=== PATIENT | female | born 1995 | race American Indian/Alaskan Native ===

== ENCOUNTER 2019-01-06 02:22 | Emergency (ER) | payer MEDICAID ==
[2019-01-06 02:30] VITALS: BP 126/70
[2019-01-06 05:32] LABS: Bilirubin,Urine NEG (Negative); Blood,Urine NEG (Negative); Color,Urine Colorless (Yellow); Protein,Urine <15 mg/dL mg/dL (Negative); Urobilinogen,Urine < 2.0 mg/dL (<2.0)
--- NOTE | 2019-01-06 06:00 | Ultrasound Report ---
PROCEDURE: US OB TRANSVAGINAL TECHNIQUE: Transvaginal imaging was obtained of the pelvis including Doppler interrogation of the ad nexa. HISTORY: 10 wks preg w/abd cramping COMPARISONS: None FINDINGS: The uterus is anteverted measuring 9.2 x 7.2 x 7.9 cm. Within the uterus is a well formed gestational sac which contains a pole. The crown-rump length is 34.3 mm corresponding to a 10 week 2 day I UP. The heart rate is 167 BPM. There is no evidence of subchorionic hemorrhage. There is minima l free fluid in the cul-de-sac. The left ovary is normal in size contour blood flow and echotexture measuring 2.8 x 1.1 x 1.7 cm. The right ovary measures 3.6 x 2.1 x 2.4 cm. Within the right ovary is a 1.6 cm anechoic cyst. The bl ood flow is normal to the right ovary. IMPRESSION: Single viable IUP, 10 weeks 2 days. The heart rate is 167 BPM. 1.6 cm anechoic cyst right ovary. No evidence of ovarian torsion bilaterally.. This document is electronically signed by Lefty Agarwal MD., January 06 2019 05:58:32 AM ET
--- NOTE | 2019-01-06 06:01 | Ultrasound Report ---
PROCEDURE: US OB <= 14 WEEKS FETUS TECHNIQUE: Transabdominal imaging was obtained of the pelvis including Doppler interrogation of the adnexa. HISTORY: 10 wks preg w/abd cramping COMPARISONS: None FINDINGS: The uterus is anteverted measuring 9.2 x 7.2 x 7.9 cm. Within the uterus is a well formed gestational sac which contains a pole. The crown-rump length is 34.3 mm corresponding to a 10 week 2 day I UP. The heart rate is 167 BPM. There is no evidence of subchorionic hemorrhage. The left ovary is normal in size contour blood flow and echotexture measuring 2.8 x 1.1 x 1.7 cm. The right ovary measures 3.6 x 2.1 x 2.4 cm. Within the right ovary is a 1.6 cm anechoic cyst. The bl ood flow is normal to the right ovary. There is minimal free fluid in the cul-de-sac. IMPRESSION: Single viable IUP, 10 weeks 2 days. The heart rate is 167 BPM. 1.6 cm right ovarian cyst. No evidence of ovarian torsion.. This document is electronically signed by Lefty Agarwal MD., January 06 2019 06:00:12 AM ET
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
[2019-01-06] MEDS ORDERED: TYLENOL PO ONE (08:14)
== END 2019-01-06 08:49 | disposition home or self-care (01) ==
LOC: ED 02:22
DX: O26.891 Other specified pregnancy related conditions, first trimester (principal); R10.2 Pelvic and perineal pain; O99.511 Diseases of the respiratory system complicating pregnancy, first trimester; J45.909 Unspecified asthma, uncomplicated; Z3A.10 10 weeks gestation of pregnancy
CPT/HCPCS: 36415; 76801; 76817; 81001; 84702; 99284

== ENCOUNTER 2019-03-15 16:01 | Observation (INO) | payer MEDICAID ==
[2019-03-15] MEDS ORDERED: LACTATED RINGERS 500 ML IV ONE (17:10)
[2019-03-15 17:39] LABS: Bilirubin,Urine NEG (Negative); Blood,Urine NEG (Negative); Color,Urine Yellow (Yellow); Mucus,Urine FEW /HPF; Protein,Urine <15 mg/dL mg/dL (Negative); Urobilinogen,Urine < 2.0 mg/dL (<2.0); WBC,Urine < 1.0 /HPF (0.0-6.0)
[2019-03-15] MEDS ORDERED: LACTATED RINGERS 1,000 ML IV ONE (18:53)
[2019-03-15 19:01] LABS: Hematocrit 33.8 % (30.3-42.9); Hemoglobin 11.6 gm/dl (10.1-14.3); Mean Corpuscular HGB Conc 34 % (30-34); Mean Corpuscular Volume 95 fl (79-97); Platelet Count 150 K/mm3 (140-440); Red Blood Count 3.56 M/mm3 (3.65-5.03)
[2019-03-15 19:32] LABS: Alanine Aminotransferase 9 units/L (7-56); Albumin 3.6 g/dL (3.9-5); BUN/Creatinine Ratio 10; Blood Urea Nitrogen 5 mg/dL (7-17); Calcium 9.1 mg/dL (8.4-10.2); Hemolysis Index 10
--- NOTE | 2019-03-15 21:08 | Ultrasound Report ---
PROCEDURE: Limited abdominal ultrasound. TECHNIQUE: Real-time sonography was performed of the right upper quadrant of the abdomen with image documentation. HISTORY: , upper right quadrant pain. COMPARISONS: None. FINDINGS: The liver has uniform echogenicity without focal masses. The portal vein is patent by color flow imag ing. The common hepatic duct measures 2.9 mm. The gallbladder is adequately distended with normal wal l thickness. There are no gallstones. There is a small amount of sludge in the gallbladder. The techn ologist felt there was a positive Ahuja's sign. There are no ultrasound imaging findings of acute ch olecystitis. The pancreas appears normal. The right kidney is normal in size and has normal echogenic ity. There is no significant hydronephrosis. IMPRESSION: Normal appearing gallbladder. Technologist felt there was a positive Ahuja's sign. This document is electronically signed by Lucio Childers MD., March 15 2019 09:06:19 PM ET
[2019-03-15] MEDS ORDERED: ZOFRAN IV PRN (22:00)
[2019-03-16] MEDS: LACTATED RINGERS 1,000 ML IV SCH ×2 (01:13→13:59)
--- NOTE | 2019-03-16 02:43 | History and Physical Report ---
History of Present Illness Date of examination: 03/16/19 Date of admission: 03/15/19 22:08 Chief complaint: nausea and vomiting History of present illness: This is a 23 yo at 20 weeks stated that she drank a mixture of drink and began vomiting. She came to the hospital . Patient c/o pain on ruq minimal. No bleeding no contractions. Denies leaking. Reports no sob nor chest pain. Past History Past Medical History: asthma, hematologic disorders (anemia) Past Surgical History: section (x1) Family/Genetic History: diabetes, hypertension, stroke Social history: single. denies: smoking, alcohol abuse, prescription drug abuse - Obstetrical History Expected Date of Delivery: 07/29/19 Actual Gestation: 20 Week(s) 5 Day(s) : 2 Para: 1 Hx # Term Pregnancies: 1 Number of Pregnancies: 0 Spontaneous Abortions: 0 Induced : 0 Number of Living Children: 1 Medications and Allergies Allergies Allergy/AdvReac Type Severity Reaction Status Date / Time No Known Allergies Allergy Verified 03/15/19 16:40 Home Medications Medication Instructions Recorded Confirmed Last Taken Type Ibuprofen [Motrin] 600 mg PO Q8H PRN #50 tablet 10/25/14 Unknown Rx Sulfamethoxazole/Trimethoprim 1 each PO BID #20 tablet 10/25/14 Unknown Rx [Bactrim Ds] oxyCODONE /ACETAMINOPHEN [Percocet 1 tab PO Q6HR PRN #15 tablet 10/25/14 Unknown Rx 5/325 mg] Acetaminophen [Tylenol 8 Hour] 650 mg PO TID #30 tablet.er 01/06/19 Unknown Rx Active Meds: Active Medications Lactated Ringer's (Lactated Ringers) 1,000 mls @ 125 mls/hr IV DIRECT LETICIA Last Admin: 03/16/19 01:13 Dose: 125 mls/hr Documented by: Ondansetron HCl (Zofran) 4 mg IV Q8H PRN PRN Reason: Nausea And Vomiting Review of Systems All systems: negative Gastrointestinal: vomiting - Vital Signs Vital signs: Vital Signs Temp Pulse Resp BP 98.9 F 75 20 107/59 03/15/19 16:41 03/15/19 16:41 03/15/19 16:41 03/15/19 16:41 Temp Pulse Resp BP Pulse Ox 97.7 F 86 18 105/57 03/15/19 22:38 03/15/19 22:40 03/15/19 22:38 03/15/19 22:40 - Physical Exam Breasts: Positive: normal Cardiovascular: Regular rate, Normal S1 Lungs: Positive: Clear to auscultation, Normal air movement Abdomen: Positive: normal appearance, soft, normal bowel sounds. Negative: distention, tenderness, guarding Genitourinary (Female): Positive: normal external genitalia, normal perenium Vagina: Positive: normal moisture Uterus: Positive: normal size, normal contour Extremities: Positive: normal Deep Tendon Reflex Grade: Normal +2 - Obstetrical FHR: category 1 Results Result Diagrams: 03/15/19 18:40 03/15/19 18:40 Abnormal lab results 03/15/19 03/15/19 03/15/19 Range/Units 18:40 18:40 18:40 RBC 3.56 L (3.65-5.03) M/mm3 MCH 33 H (28-32) pg RDW 13.0 L (13.2-15.2) % Sodium 134 L (137-145) mmol/L BUN 5 L (7-17) mg/dL Creatinine 0.5 L (0.7-1.2) mg/dL Albumin 3.6 L (3.9-5) g/dL Amylase 190 H (27-131) units/L Lipase (13-60) units/L 03/15/19 Range/Units 18:40 RBC (3.65-5.03) M/mm3 MCH (28-32) pg RDW (13.2-15.2) % Sodium (137-145) mmol/L BUN (7-17) mg/dL Creatinine (0.7-1.2) mg/dL Albumin (3.9-5) g/dL Amylase (27-131) units/L Lipase 8 L (13-60) units/L All other labs normal. Assessment and Plan A/P IUP 20 weeks Nausea Elevated amylase Sludge ( gallbladder) on US Observation anti-emetics, IVF Spoke with Dr. Arroyo and she will see patient in am doptones q shift US repeat labs in am if normal consider d/c home
[2019-03-16] MEDS ORDERED: AMBIEN PO PRN (02:58)
[2019-03-16] MEDS ORDERED: PERCOCET 5/325 PO ONE (13:08)
--- NOTE | 2019-03-16 13:45 | Ultrasound Report ---
OB ULTRASOUND History: Nausea and vomiting, 20 weeks gestation. Technique: Transabdominal ultrasound with Doppler interrogation. Gestation: Single Position: Cephalic Amniotic Fluid: Within normal limits Placenta: Posterior Placental Grade: 0 Heart Rate: 161 BPM Cervical length: 2.8 cm (Normal > 3 cm) NEUROANATOMY VISUALIZED: Choroid Plexus Lateral Ventricle ANATOMY VISUALIZED: Stomach Kidneys Bladder Diaphragm 4 Chamber Heart Heart 3 Vessel Cord Abd. Cord Insert SPINE VISUALIZED: Longitudinal The following are not demonstrated due to maternal body habitus or lie: Cisterna magnum, cerebellum and transverse views of the spine BPD: 4.6 cm = 19 w 6 d HC: 17.5 cm = 20 w 0 d AC: 13.9 cm = 19 w 2 d FL: 3.6 cm = 21 w 2 d HC/AC Ratio: 1.26 Cephalic Index: 79.3 Estimated Weight: 339 grams US Gest. Age = 20 w 1 d EDC: 08/02/19 IMPRESSION: Viable, single intrauterine as described. No acute abnormality is detected.
[2019-03-16 14:02] VITALS: BP 108/64
--- NOTE | 2019-03-16 14:54 | Consultation ---
History of Present Illness Consult date: 03/16/19 - History of present illness History of present illness: 23 yo female with current 20w1d intrauterine presented to hospital with n/v x 1 day. The patient states that she ate maría elena with vinegar the night before the symptoms started. She woke up with nausea and proceeded to vomit (nonbilious/nonbloody). She attributes the symptoms to this meal. She states she is having lower abdominal pain. No f/c, cp, sob. She is having BMs. Her n/v has now resolved and she is tolerating a regular diet. Past History Past Medical History: No medical history Past Surgical History: Social history: single. denies: smoking, alcohol abuse, prescription drug abuse Medications and Allergies Allergies Allergy/AdvReac Type Severity Reaction Status Date / Time No Known Allergies Allergy Verified 03/15/19 16:40 Home Medications Medication Instructions Recorded Confirmed Last Taken Type Ibuprofen [Motrin] 600 mg PO Q8H PRN #50 tablet 10/25/14 Unknown Rx Sulfamethoxazole/Trimethoprim 1 each PO BID #20 tablet 10/25/14 Unknown Rx [Bactrim Ds] oxyCODONE /ACETAMINOPHEN [Percocet 1 tab PO Q6HR PRN #15 tablet 10/25/14 Unknown Rx 5/325 mg] Acetaminophen [Tylenol 8 Hour] 650 mg PO TID #30 tablet.er 01/06/19 Unknown Rx Active Meds: Active Medications Lactated Ringer's (Lactated Ringers) 1,000 mls @ 125 mls/hr IV DIRECT LETICIA Last Admin: 03/16/19 13:59 Dose: 125 mls/hr Documented by: Ondansetron HCl (Zofran) 4 mg IV Q8H PRN PRN Reason: Nausea And Vomiting Zolpidem Tartrate (Ambien) 10 mg PO QHS PRN PRN Reason: Insomnia Review of Systems All systems: negative (10 pt ROS performed and negative except for that listed in HPI) Exam Vital Signs Temp Pulse Resp BP 98.9 F 75 20 107/59 03/15/19 16:41 03/15/19 16:41 03/15/19 16:41 03/15/19 16:41 Narrative exam: Gen: AAOx3. NAD CV: s1, S2+ Resp: even and unlabored Abd: soft, ND, LLQ and RLQ TTP - minimal. fundal height at umbilicus. No r/r/g. No RUQ TTP. Results - Labs 03/15/19 18:40 03/15/19 18:40 Abnormal lab results 03/15/19 03/15/19 03/15/19 Range/Units 18:40 18:40 18:40 RBC 3.56 L (3.65-5.03) M/mm3 MCH 33 H (28-32) pg RDW 13.0 L (13.2-15.2) % Sodium 134 L (137-145) mmol/L BUN 5 L (7-17) mg/dL Creatinine 0.5 L (0.7-1.2) mg/dL Albumin 3.6 L (3.9-5) g/dL Amylase 190 H (27-131) units/L Lipase (13-60) units/L 03/15/19 Range/Units 18:40 RBC (3.65-5.03) M/mm3 MCH (28-32) pg RDW (13.2-15.2) % Sodium (137-145) mmol/L BUN (7-17) mg/dL Creatinine (0.7-1.2) mg/dL Albumin (3.9-5) g/dL Amylase (27-131) units/L Lipase 8 L (13-60) units/L Diabetes panel 03/15/19 Range/Units 18:40 Sodium 134 L (137-145) mmol/L Potassium 4.2 (3.6-5.0) mmol/L Chloride 99.8 (98-107) mmol/L Carbon Dioxide 24 (22-30) mmol/L BUN 5 L (7-17) mg/dL Creatinine 0.5 L (0.7-1.2) mg/dL Glucose 89 (65-100) mg/dL Calcium 9.1 (8.4-10.2) mg/dL AST 13 (5-40) units/L ALT 9 (7-56) units/L Alkaline Phosphatase 62 (35-129) units/L Total Protein 7.2 (6.3-8.2) g/dL Albumin 3.6 L (3.9-5) g/dL Calcium panel 03/15/19 Range/Units 18:40 Calcium 9.1 (8.4-10.2) mg/dL Albumin 3.6 L (3.9-5) g/dL Pituitary panel 03/15/19 Range/Units 18:40 Sodium 134 L (137-145) mmol/L Potassium 4.2 (3.6-5.0) mmol/L Chloride 99.8 (98-107) mmol/L Carbon Dioxide 24 (22-30) mmol/L BUN 5 L (7-17) mg/dL Creatinine 0.5 L (0.7-1.2) mg/dL Glucose 89 (65-100) mg/dL Calcium 9.1 (8.4-10.2) mg/dL Adrenal panel 03/15/19 Range/Units 18:40 Sodium 134 L (137-145) mmol/L Potassium 4.2 (3.6-5.0) mmol/L Chloride 99.8 (98-107) mmol/L Carbon Dioxide 24 (22-30) mmol/L BUN 5 L (7-17) mg/dL Creatinine 0.5 L (0.7-1.2) mg/dL Glucose 89 (65-100) mg/dL Calcium 9.1 (8.4-10.2) mg/dL Total Bilirubin 0.20 (0.1-1.2) mg/dL AST 13 (5-40) units/L ALT 9 (7-56) units/L Alkaline Phosphatase 62 (35-129) units/L Total Protein 7.2 (6.3-8.2) g/dL Albumin 3.6 L (3.9-5) g/dL - Imaging US - abdomen: report reviewed, image reviewed Assessment and Plan 23 yo F with 1. n/v 2. intrauterine Plan: 1. Patient stable without RUQ pain and n/v now resolved. Amylase mildly elevated likely due to vomiting. U/S negative for gallstones or signs of acute cholecystitis. Continue reg diet 2. 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 no indication for general surgery intervention. ok for dc from my standpoint. D/W Dr. Merritt. Thank you, please call with questions
[2019-03-16 17:32] LABS: Alanine Aminotransferase 7 units/L (7-56); Blood Urea Nitrogen 5 mg/dL (7-17)
[2019-03-16 17:33] LABS: Albumin 3.3 g/dL (3.9-5); Hemolysis Index 3
[2019-03-16 17:44] LABS: BUN/Creatinine Ratio 10
== END 2019-03-16 18:50 | disposition home or self-care (01) ==
LOC: TRG 16:01 → LD 22:08
PROVIDERS: ADMIT Obstetrics & Gynecology; ATTEND Obstetrics & Gynecology
DX: O21.2 Late vomiting of pregnancy (principal); O26.892 Other specified pregnancy related conditions, second trimester; R10.11 Right upper quadrant pain; R74.8 Abnormal levels of other serum enzymes; Z3A.20 20 weeks gestation of pregnancy
CPT/HCPCS: 36415; 59025; 76705; 76805; 80053; 81001; 82150; 83690; 85027; 96360; 96361; G0378; J2405; J7120

== ENCOUNTER 2019-04-13 19:35 | Outpatient (CLI) | payer MEDICAID ==
[2019-04-13] MEDS ORDERED: LACTATED RINGERS 500 ML IV ONE (21:57)
[2019-04-14 00:09] LABS: Basophils # (Auto) 0.2 K/mm3 (0.0-0.1); Eosinophils # (Auto) 0.1 K/mm3 (0.0-0.4); Eosinophils % (Auto) 0.9 % (0.0-4.3); Hematocrit 32.6 % (30.3-42.9); Hemoglobin 11.2 gm/dl (10.1-14.3); Lymphocytes # (Auto) 1.6 K/mm3 (1.2-5.4); Mean Corpuscular HGB Conc 34 % (30-34); Mean Corpuscular Volume 95 fl (79-97); Monocytes # (Auto) 0.4 K/mm3 (0.0-0.8); Monocytes % (Auto) 6.7 % (0.0-7.3); Platelet Count 141 K/mm3 (140-440); Red Blood Count 3.42 M/mm3 (3.65-5.03); Red Cell Distribution Width 13.1 % (13.2-15.2)
[2019-04-14 00:19] LABS: Bilirubin,Urine NEG (Negative); Blood,Urine NEG (Negative); Color,Urine Yellow (Yellow); Protein,Urine <15 mg/dL mg/dL (Negative); RBC,Urine < 1.0 /HPF (0.0-6.0); Urobilinogen,Urine < 2.0 mg/dL (<2.0); WBC,Urine < 1.0 /HPF (0.0-6.0)
[2019-04-14 00:24] LABS: Alanine Aminotransferase 10 units/L (7-56); Albumin 3.5 g/dL (3.9-5); BUN/Creatinine Ratio 12; Blood Urea Nitrogen 7 mg/dL (7-17); Calcium 9.4 mg/dL (8.4-10.2); Hemolysis Index 1
[2019-04-14 01:02] VITALS: BP 91/54
== END 2019-04-14 01:14 | disposition home or self-care (01) ==
LOC: TRG 19:35
PROVIDERS: ATTEND Obstetrics & Gynecology
DX: O21.2 Late vomiting of pregnancy (principal); O26.892 Other specified pregnancy related conditions, second trimester; O13.3 Gestational [pregnancy-induced] hypertension without significant proteinuria, third trimester; R10.9 Unspecified abdominal pain; Z3A.24 24 weeks gestation of pregnancy
CPT/HCPCS: 36415; 59025; 80053; 81001; 82150; 83690; 85025

== ENCOUNTER 2019-06-03 22:56 | Outpatient (CLI) | payer MEDICAID ==
[2019-06-03 23:19] VITALS: BP 119/51
[2019-06-03] MEDS ORDERED: LACTATED RINGERS 1,000 ML IV ONE (23:26)
[2019-06-03 23:49] LABS: Bacteria,Urine 1+ /HPF (Negative); Bilirubin,Urine NEG (Negative); Blood,Urine NEG (Negative); Color,Urine Colorless (Yellow); Protein,Urine <15 mg/dL mg/dL (Negative); Urobilinogen,Urine < 2.0 mg/dL (<2.0)
== END 2019-06-04 01:34 | disposition home or self-care (01) ==
LOC: TRG 22:56
PROVIDERS: ATTEND Obstetrics & Gynecology
DX: O26.893 Other specified pregnancy related conditions, third trimester (principal); R10.31 Right lower quadrant pain; Z3A.32 32 weeks gestation of pregnancy
CPT/HCPCS: 59025; 81001; 96360; J7120

== ENCOUNTER 2019-07-16 21:15 | Outpatient (CLI) | payer MEDICAID ==
[2019-07-16] MEDS ORDERED: LACTATED RINGERS 1,000 ML IV SCH (22:00)
[2019-07-16 22:13] LABS: Bilirubin,Urine NEG (Negative); Color,Urine Straw (Yellow)
[2019-07-16 22:14] LABS: Blood,Urine NEG (Negative); Protein,Urine <15 mg/dL mg/dL (Negative); RBC,Urine < 1.0 /HPF (0.0-6.0); Urobilinogen,Urine < 2.0 mg/dL (<2.0)
[2019-07-16 22:17] LABS: WBC,Urine < 1.0 /HPF (0.0-6.0)
[2019-07-16] MEDS ORDERED: ALUM-MAG HYDROXIDE-SIMETHICONE 200-200-20MG/5ML ORAL LIQD 30 ML PO STA (22:21)
--- NOTE | 2019-07-17 03:06 | Ultrasound Report ---
Limited Obstetrical Ultrasound Indication: Abdominal pain, COMPARISON: 03/16/2019 Intrauterine with is again noted. Dating was not performed. Fetus is in a cephalic position . Amniotic fluid volume appears qualitatively within normal limits and LUCAS is within normal limits at 8.9 cm. Cardiac activity was seen with heart rate of 156 bpm. The placenta is posterior and free of the internal cervical os. Several images of the placenta show a thin rim of nearly anechoic lucency posteriorly seemingly between the placental surface and the myom etrium. In some areas this has a small amount of blood flow but particularly near the upper margin of the placenta I cannot fully exclude the possibility of abruption. IMPRESSION: Questionable evidence of marginal placental abruption as above. If there is clinical conc edenilson for abruption I would suggest close follow-up. Biophysical profile breathing movements: 2/2 movements: 2/2 posturing tone: 2/2 Qualitative amniotic fluid volume: 2/2 Total score: 8/8, within normal limits Signer Name: Navjot Hollins MD Signed: 07/17/2019 3:02 AM Workstation Name: [id number]
--- NOTE | 2019-07-17 21:30 | Progress Note ---
Assessment and Plan A: at 38 1/7 weeks gestation. False labor. P: US for BPP and LUCAS. EFM. UA. Subjective - Subjective Date of service: 07/16/19 Principal diagnosis: at 38 1/7 weeks gestation; decreased FM Interval history: 23 year old presents at 38 weeks, 1 day gestation with complaint of decreased movement today and also contractions accompanied by vaginal pressure and pain. Patient denies falls or abdominal trauma. Patient denies vaginal bleeding or leaking of fluid. Contractions have been irregular. Patient states she is schedule for a repeat C/S next week. She denies any pain on her scar. Patient reports: movement normal, contractions, no loss of fluid, no vaginal bleeding Objective - Exam Abdomen: Present: normal appearance, soft. Absent: distention, tenderness, guarding, rigidity Uterus: Present: normal, fundal height above umbilicus. Absent: tenderness FHR: category 1 Uterine Contraction Monitor Mode: External Cervical Dilatation: 0 Cervical Effacement Percentage: 0 station: -4 Uterine Contraction Pattern: Irregular Uterine Contraction Intensity: Mild - Labs Labs: Laboratory Results - last 24 hr 07/16/19 Unknown Urine Color Straw Urine Turbidity Clear Urine pH 7.0 Ur Specific Lewis 1.004 Urine Protein <15 mg/dl Urine Glucose (UA) Neg Urine Ketones Neg Urine Blood Neg Urine Nitrite Neg Urine Bilirubin Neg Urine Urobilinogen < 2.0 Ur Leukocyte Esterase Neg Urine WBC (Auto) < 1.0 Urine RBC (Auto) < 1.0 U Epithel Cells (Auto) 2.0
== END 2019-07-17 02:05 | disposition home or self-care (01) ==
LOC: TRG 21:15
PROVIDERS: ATTEND Obstetrics & Gynecology
DX: O36.8130 Decreased fetal movements, third trimester, not applicable or unspecified (principal); O26.893 Other specified pregnancy related conditions, third trimester; R10.9 Unspecified abdominal pain; Z3A.38 38 weeks gestation of pregnancy
CPT/HCPCS: 59025; 76815; 76819; 81001

== ENCOUNTER 2019-07-17 13:38 | Outpatient (CLI) | payer MEDICAID ==
--- NOTE | 2019-07-17 15:49 | Ultrasound Report ---
ULTRASOUND BIOPHYSICAL PROFILE AND LIMITED OB ULTRASOUND INDICATION / CLINICAL INFORMATION: BPP. Rule out abruption. COMPARISON: None available. FINDINGS: BREATHING MOVEMENT = 2 GROSS BODY MOVEMENT = 2 TONE = 2 QUALITATIVE AMNIOTIC FLUID VOLUME = 2 TOTAL BIOPHYSICAL SCORE = 8/8 AMNIOTIC FLUID INDEX (cm) = 8.2 PRESENTATION: Cephalic. HEART RATE (beats per minute): 157 The placenta is located posteriorly, is grade 2 and is free of the os. There is no evidence of abrupt ion. IMPRESSION: 1. biophysical profile = 8 2. No evidence of placental abruption. Signer Name: Lefty Mayberry MD Signed: 07/17/2019 3:45 PM Workstation Name: [id number]
[2019-07-17] MEDS ORDERED: LACTATED RINGERS 1,000 ML IV ONE (17:00)
[2019-07-17] MEDS ORDERED: HYDROcodone/ACETAMINOPHEN 5-325 MG TAB PO ONE (17:00)
[2019-07-17] MEDS ORDERED: TERBUTALINE 1 MG/1 ML INJ SUB-Q ONE ×2 (18:24→21:00)
[2019-07-17] MEDS ORDERED: LACTATED RINGERS 1,000 ML IV SCH (20:00)
[2019-07-17] MEDS ORDERED: BICITRA ORAL LIQD 30ML PO ONE (21:00)
--- NOTE | 2019-07-17 21:03 | Progress Note ---
Assessment and Plan A: at 38 weeks, 2 days gestation. P: Repeat US. Continuous EFM. Consulted with Dr. Jarvis re: pt., previous US result. Pt. to have repeat US and EFM. Dr. Jarvis to determine disposition. I Subjective - Subjective Date of service: 07/17/19 Principal diagnosis: at 38 2/7 weeks Interval history: 23 year old called back in for a repeat US due to radiologists comments on US done several hours ago in triage (US report stated that placental abruption could not be ruled out). Patient reports good movement. She denies vaginal bleeding or leaking of fluid. She denies falls or abdominal trauma. Patient reports: movement normal, no new complaints, no loss of fluid, no vaginal bleeding, no contractions Objective - Vital Signs Vital Signs: Vital Signs - 12hr 07/17/19 07/17/19 07/17/19 19:36 20:11 20:15 Temperature 98.4 F Pulse Rate 92 H 100 H Respiratory 18 Rate Blood Pressure 131/78 109/58 07/17/19 20:36 Temperature Pulse Rate 88 Respiratory Rate Blood Pressure 108/61 - Exam Abdomen: Present: normal appearance, soft. Absent: distention, tenderness, guarding, rigidity Uterus: Present: normal. Absent: firm, bogginess, tenderness FHR: category 1 Uterine Contraction Monitor Mode: External Cervical Dilatation: 0 Cervical Effacement Percentage: 40 station: -3 Uterine Contraction Pattern: Irregular Uterine Contraction Intensity: Mild Extremities: normal
[2019-07-17 21:07] VITALS: BP 98/53
== END 2019-07-17 21:45 | disposition home or self-care (01) ==
LOC: TRG 13:38
PROVIDERS: ATTEND Obstetrics & Gynecology
DX: O47.1 False labor at or after 37 completed weeks of gestation (principal); Z3A.38 38 weeks gestation of pregnancy
CPT/HCPCS: 76815; 76819; 96360; 96361; 96372; J3105; J7120